=== PATIENT | male | born 1970 | race Caucasian/White ===

== ENCOUNTER 2017-01-31 16:25 | Emergency (ER) | payer SELFPAY ==
[2017-01-31 16:52] LABS: BASOPHIL 0.7 % (0-2); EOSINOPHIL 2.7 % (0-5); HCT 39.3 % (42.0-52.0); HGB 13.9 g/dl (13.2-18.0); LYMPHOCYTE 31.6 % (15-48); MCHC 35.4 g/dL (32.0-36.0); MCV 90.6 fL (78.0-100.0); MONOCYTE 9.5 % (0-12); MPV 10.5 fL (6.0-9.5); NEUTROPHIL 55.5 % (41-80); PLT 183 K/uL (150-400); RBC 4.34 M/uL (4.70-6.00); RDW 12.2 % (11.5-14.0); WBC 5.9 K/uL (4.0-10.5)
[2017-01-31 17:04] LABS: INR 0.93 (0.9-1.2); PROTHROMBIN TIME 12.1 SECONDS (11.7-14.0); PTT 26.3 SECONDS (23.2-31.4)
[2017-01-31 17:05] LABS: D-DIMER < 0.27 ug/mLFEU (0.00-0.41)
[2017-01-31 17:09] LABS: ALBUMIN 4.7 g/dL (3.5-5.0); BILIRUBIN - TOTAL 0.8 mg/dL (0.1-1.0); CREATININE 0.7 mg/dL (0.7-1.2); GLOBULIN (CALCULATION) 2.8 g/dL (2.2-4.2); MAGNESIUM 1.53 mg/dL (1.40-2.10); POTASSIUM 4.5 mmol/L (3.5-5.1); TOTAL PROTEIN 7.5 g/dL (6.4-8.3)
[2017-01-31 17:11] LABS: CKMB 2.02 ng/mL (0.97-4.94); MYOGLOBIN 28 ng/mL (26-65); PRO-BNP 55 pg/mL (0-125); TROPONIN T < 0.010 ng/mL
== END 2017-01-31 20:30 | disposition home or self-care (01) ==
LOC: FER 16:25
PROVIDERS: Internal Medicine
DX: R07.9 Chest pain, unspecified (principal); E11.9 Type 2 diabetes mellitus without complications; I10 Essential (primary) hypertension; E78.5 Hyperlipidemia, unspecified; Z95.5 Presence of coronary angioplasty implant and graft
CPT/HCPCS: 36415; 71020; 80053; 82550; 82553; 83735; 83874; 83880; 84484; 85025; 85379; 85610; 85730; 93005